=== PATIENT | female | born 1945 | race Caucasian/White ===

== ENCOUNTER 2016-08-07 21:20 | Emergency (ER) | payer OTHER ==
[2016-08-07 21:40] VITALS: TEMP 97.9
--- NOTE | 2016-08-07 21:58 | EDPHY ---
H & P Stated Complaint: High Blood Pressure Time Seen by Provider: 08/07/16 21:55 HPI/ROS: Chief complaint: High blood pressure HPI: 71-year-old woman with no significant medical history had a insurance medical screening examination yesterday was noted to be hypertensive at 170 systolic. This concerned her so she purchased a home blood pressure monitor. She has checked her blood pressure 7 times today. Noted that it has been anywhere from the 170s to over 200. She denies any headache. No chest pain. No fevers or chills. No nausea or vomiting. No vision or hearing changes. No syncope. No physical complaints at all at this point. She has pain stenting with concerns that her blood pressures running this high. Patient states she has had high blood pressures when she has seen her doctor in the past but this is been attributed to her being nervous in the doctor's office. ROS: 10 point Review of Systems is negative except as noted in the HPI. Past medical history: None Medications: Calcium and vitamin-D Allergies: Penicillin Social history: She is nonsmoker, drinks rare alcohol, no other drug use Physical exam: Gen: Awake, Alert, No Distress HEENT: Nose: no rhinorrhea Eyes: PERRLA, EOMI Mouth: Moist mucosa Neck: Supple, no JVD Chest: nontender, lungs clear to auscultation Heart: S1, S2 normal, no murmur Abd: Soft, non-tender, no guarding Back: no CVA tenderness, no midline tenderness Ext: no edema, non-tender Skin: no rash Neuro: CN II-XII intact, Sensation grossly intact, Strength 5/5 in bilateral upper and lower extremities - Personal History Current Tetanus Diphtheria and Acellular Pertussis (TDAP): Yes - Medical/Surgical History Hx Asthma: No Hx Chronic Respiratory Disease: No Hx Diabetes: No Hx Cardiac Disease: No Hx Renal Disease: No Hx Cirrhosis: No Hx Alcoholism: No Hx HIV/AIDS: No Hx Splenectomy or Spleen Trauma: No Other PMH: Thyroid Sgy (Partial removal due to mass - [place]) - Social History Smoking Status: Never smoked Constitutional: Initial Vital Signs Temperature (C) 36.6 C 08/07/16 21:38 Heart Rate 82 08/07/16 21:38 Respiratory Rate 18 08/07/16 21:38 Blood Pressure 205/111 H 08/07/16 21:38 O2 Sat (%) 96 08/07/16 21:38 O2 Delivery Mode Room Air Allergies/Adverse Reactions: Penicillins Allergy (Intermediate, Verified 06/25/13 10:19) facial swelling Home Medications: Medication Instructions Recorded NK [No Known Home Meds] 06/25/13 Medical Decision Making ED Course/Re-evaluation: 8-year-old woman with asymptomatic hypertension here. She is quite hypertensive at this time. Will check a urinalysis rule out occult urinary tract infection. Will give her 0.01 of clonidine. Will reassess. She is otherwise well-appearing. Blood pressure responds appropriately plan will be to discharge with follow-up with primary care physician. Repeat blood pressure 147/85. Patient was out complaint. Will discharge with follow-up as an outpatient. - Data Points Laboratory Results: 08/07/16 22:25 Urine Color COLORLESS Urine Appearance CLEAR Urine pH 7.0 (5.0-7.5) Ur Specific [place] 1.002 (1.002-1.030) Urine Protein NEGATIVE (NEGATIVE) Urine Ketones NEGATIVE (NEGATIVE) Urine Blood 1+ H (NEGATIVE) Urine Nitrate NEGATIVE (NEGATIVE) Urine Bilirubin NEGATIVE (NEGATIVE) Urine Urobilinogen NEGATIVE EU EU (0.2-1.0) Ur Leukocyte Esterase TRACE H (NEGATIVE) Urine RBC 1-3 /hpf /hpf (0-3) Urine WBC 1-3 /hpf /hpf (0-3) Ur Epithelial Cells TRACE /lpf /lpf (NONE-1+) Urine Bacteria TRACE /hpf H /hpf (NONE SEEN) Urine Glucose NEGATIVE (NEGATIVE) Medications Given: Discontinued Medications Clonidine (Catapres) 0.1 mg PO EDNOW ONE Stop: 08/07/16 22:07 Last Admin: 08/07/16 22:13 Dose: 0.1 mg Departure - Departure Disposition: Home, Routine, Self-Care Clinical Impression: Hypertension Condition: Good Instructions: Hypertension (ED) Additional Instructions: Follow up with her primary care physician in 1-2 days for recheck your blood pressure in to assess with the need to start on blood pressure medicine. Return to the emergency department for increasing headache, chest pain, shortness of breath, fevers, chills, or any other concerns. Referrals: Basil Becker MD [Primary Care Provider] - As per Instructions
[2016-08-07 22:45] LABS: COLOR COLORLESS; LEUKOCYTE ESTERASE,URINE TRACE (NEGATIVE); NITRITE,URINE NEGATIVE (NEGATIVE)
[2016-08-07 23:00] LABS: BACTERIA TRACE /hpf (NONE SEEN)
[2016-08-08 00:14] VITALS: BP 147/85; PULSE 84; RESP 14; O2SAT 95
== END 2016-08-08 00:16 | disposition home or self-care (01) ==
DX: I10 Essential (primary) hypertension (principal)

== ENCOUNTER → 2017-07-02 | Outpatient (CLI) | payer OTHER | LOC: BMCIMAGING 12:21 | PROVIDERS: ATTEND Podiatrist Foot & Ankle Surgery | DX: M77.31 Calcaneal spur, right foot (principal) ==

== ENCOUNTER → 2018-04-22 | Outpatient (CLI) | payer OTHER | LOC: FIMAGING 13:04 | PROVIDERS: ATTEND Internal Medicine | DX: Z12.31 Encounter for screening mammogram for malignant neoplasm of breast (principal) ==